=== PATIENT | female | born 1995 | race Caucasian/White ===

== ENCOUNTER 2016-07-20 11:14 | Emergency (ER) | payer MEDICAID ==
--- NOTE | 2016-07-20 11:35 | EDPHY ---
H & P Time Seen by Provider: 07/20/16 11:24 HPI/ROS: CHIEF COMPLAINT: Right knee injury HISTORY OF PRESENT ILLNESS: 20-year-old female presents to the emergency department complaining of isolated pain to her right knee. The patient states that [place] and [place] injuring her right knee. She has had previous injury to her right knee a year and half ago and was in a brace and required physical therapy for 6 months. She has been doing well until today when she was hiking and fell. She denies hitting her head or losing consciousness. Denies any other trauma or injury. ROS: Denies numbness or tingling in her toes, pain in her right foot, right ankle or hip. Past Medical/Surgical History: Orthopedic injury Social History: Currently homeless, from [place] Smoking Status: Current every day smoker Physical Exam: On examination there is no obvious effusion noted. She has pain with palpation especially in the right medial joint line as well as along the medial aspect of her right knee. She has limited flexion secondary to pain. She is able to fully extend her right knee secondary to pain. Normal sensation to light touch with normal 2 point discrimination. Full range of motion of her right foot in her right ankle. She is able to stand on her knee however this does cause pain. No obvious ligament instability although the patient is very guarded so this is difficult to test. Constitutional: Initial Vital Signs Temperature (C) 36.3 C 07/20/16 11:19 Heart Rate 84 07/20/16 11:19 Respiratory Rate 18 07/20/16 11:19 Blood Pressure 100/73 07/20/16 11:19 O2 Sat (%) 94 07/20/16 11:19 O2 Delivery Mode Room Air Allergies/Adverse Reactions: azithromycin Allergy (Verified 07/20/16 11:18) hydromorphone [From Dilaudid] Allergy (Verified 07/20/16 11:19) sulfamethoxazole [From Septra] Allergy (Verified 07/20/16 11:18) trimethoprim [From Septra] Allergy (Verified 07/20/16 11:18) Home Medications: Medication Instructions Recorded NK [No Known Home Meds] 07/20/16 MDM/Departure - MDM Diagnostics: Imaging Impressions Knee X-Ray 07/20/16 11:32 Impression: Negative. No acute fracture. X-rays were reviewed by myself and the PAC system. Procedures: Patient was placed in straight Ruth Ann examined post application in good placement with normal [employer]. ED Course/Re-evaluation: 20-year-old female presents to the emergency department with right knee injury. X-rays reveal no fractures. She was placed in straight leg knee immobilizer and given orthopedic referral. - Depart Clinical Impression: Right knee sprain Qualifiers: Encounter type: initial encounter Involved ligament of knee: unspecified ligament Qualified Code(s): S83.91XA - Sprain of unspecified site of right knee , initial encounter Condition: Good Instructions: Knee Sprain (ED) Additional Instructions: Please follow-up with [facility] at [address] Knee immobilizer for comfort and support. Weightbear as tolerated. Ibuprofen 600 mg every 8 hours as needed for pain. Referrals: Oscar Alvarado MD [Medical Doctor] - As per Instructions [facility],. [Clinic] - As per Instructions
[2016-07-20 12:51] VITALS: BP 99/56; PULSE 82; RESP 20; TEMP 98.6; O2SAT 95
== END 2016-07-20 12:53 | disposition home or self-care (01) ==
DX: S83.91XA Sprain of unspecified site of right knee, initial encounter (principal); F17.200 Nicotine dependence, unspecified, uncomplicated; W18.39XA Other fall on same level, initial encounter; Y92.828 Other wilderness area as the place of occurrence of the external cause; Y99.8 Other external cause status; Y93.01 Activity, walking, marching and hiking
CPT/HCPCS: L1830